=== PATIENT | female | born 1935 | race Caucasian/White ===

== ENCOUNTER 2021-01-07 11:00 | Emergency (ER) | payer MEDICARE, OTHER ==
[2021-01-07 12:39] LABS: HEMOGLOBIN 14.8 gm/dl (12.3-15.3); RED BLOOD COUNT 4.88 M/UL (4.00-5.10); WHITE BLOOD COUNT 12.2 K/UL (4.5-11.0)
[2021-01-07 13:02] LABS: BUN/CREATININE RATIO 24 (0-10)
[2021-01-07] MEDS ORDERED: MACROBID 100 M100 MG PO (17:13)
== END 2021-01-07 17:20 | disposition home or self-care (01) ==
LOC: ER1 11:00
PROVIDERS: Physician Assistant Medical
DX: N39.0 Urinary tract infection, site not specified (principal); I10 Essential (primary) hypertension; E03.9 Hypothyroidism, unspecified; Z88.5 Allergy status to narcotic agent; Z88.8 Allergy status to other drugs, medicaments and biological substances
CPT/HCPCS: 80053; 81001; 82550; 82553; 83690; 84484; 85025; 87086; 96374; 96375; 99284; J2270; J2405; Q9967